=== PATIENT | female | born 1955 | race Caucasian/White ===

== ENCOUNTER → 2016-08-06 | Outpatient (CLI) | payer BC ==
[~2016-08-06] MED LIST: CALCTAB7 PO; CHOL100027 PO; CLINDAMYCIN PHOS 1%; CMD10 PO; CYCLOSPORINE 0.05%; FEXO1TAB46 PO; FLNIN NAE; METRONIDAZOLE 1%; MULTTAB58 PO; OMEG10007 PO; TEMA15CA4 PO; TUSSIGON PO; WARF5TAB90 PO
== END | disposition home or self-care (01) ==
LOC: C.LABSPEC 14:02
PROVIDERS: ATTEND Physician Assistant
DX: N76.2 Acute vulvitis (principal)

== ENCOUNTER → 2016-08-12 | Outpatient (CLI) | payer BC ==
--- NOTE | 2016-08-12 16:30 | MAMMOGRAPHY REPORT ---
UNILATERAL LEFT DIGITAL DIAGNOSTIC MAMMOGRAM TOMOSYNTHESIS WITH CAD AND TARGETED LEFT ULTRASOUND: CLINICAL HISTORY: 60-year-old woman presents with a new palpable "lump/thickening" in the upper oute r posterior left breast. TECHNIQUE: Left breast tomosynthesis in addition to standard 2D mammography was performed. Current s anel was also evaluated with a Computer Aided Detection (CAD) system. COMPARISON: Comparison is made to exams dated: 01/18/2016 mammogram, 01/12/2015 mammogram, 01/11/2014 mammogram, 01/07/2013 mammogram, 01/02/2012 mammogram, and 12/26/2010 mammogram - [facility] enter. BREAST COMPOSITION: There are scattered areas of fibroglandular density in the left breast. FINDINGS: A triangle palpable marker was placed on the skin of the upper outer posterior left breast , in the area of palpable concern pointed out by the patient. There have been involutional changes comparing to more remote prior available mammograms. No new suspicious mass, architectural distorti on or cluster of microcalcifications is seen in the left breast, with particular attention to the ne w palpable area. Targeted ultrasound was performed in the area of concern pointed out by the patient. On palpation, there is a soft mobile grape sized ovoid mass approximately 1 x 2 cm. On ultrasound, there is cristofer l fatty echotexture tissue in the 1:00 left breast, 9 cm from the nipple. No suspicious solid or cy stic mass is seen. IMPRESSION: ACR BI-RADS CATEGORY 2: BENIGN, TARGETED ULTRASOUND ACR BI-RADS CATEGORY 2: BENIGN 1. There is no suspicious mammographic or sonographic abnormality correlating with the new palpable thickening/lump in the 1:00 left breast, pointed out by the patient. This could represent a promine nt fat lobule or possibly a lipoma. Nevertheless, clinical follow-up is recommended, as biopsy of a clinically suspicious mass should not be precluded by negative imaging. 2. Aside from involutional changes of the left breast, there is no significant interval mammographi c change and no mammographic evidence of malignancy. Would recommend continuation of routine screen ing mammography schedule. These results and recommendations were discussed with the patient at the time of the exam. Approximately 10% of breast cancers are not detected with mammography. A negative mammographic repor t should not delay biopsy if a clinically suggestive mass is present. Macy Huston M.D. ay/:08/12/2016 14:56:25 [employer]: Berkley Patten, [facility] letter sent: Normal 1/2 BI-RADS Code: ACR BI-RADS Category 2: Benign Ultrasound BI-RADS: ACR BI-RADS Category 2: Benign
== END | disposition home or self-care (01) ==
LOC: C.MAMM 13:12
PROVIDERS: ATTEND Physician Assistant
DX: N64.59 Other signs and symptoms in breast (principal)

== ENCOUNTER → 2017-01-20 | Outpatient (CLI) | payer BC ==
--- NOTE | 2017-01-21 07:56 | MAMMOGRAPHY REPORT ---
BILATERAL DIGITAL SCREENING MAMMOGRAM TOMOSYNTHESIS WITH CAD: 01/20/2017 CLINICAL HISTORY: Routine screening. Patient has no complaints. TECHNIQUE: Breast tomosynthesis in addition to standard 2D mammography was performed. Current study was also evaluated with a Computer Aided Detection (CAD) system. COMPARISON: Comparison is made to exams dated: 01/18/2016 mammogram, 01/12/2015 mammogram, 01/11/2014 m ammogram, 01/07/2013 mammogram, and 01/02/2012 mammogram - [facility] [address] BREAST COMPOSITION: There are scattered areas of fibroglandular density in both breasts. FINDINGS: There is a possible area of architectural distortion in the 12:00 posterior right breast, for which additional spot compression tomosynthesis views and possible ultrasound are recommended. No other suspicious mass, architectural distortion or cluster of microcalcifications is seen bilatera lly. IMPRESSION: ACR BI-RADS CATEGORY 0: INCOMPLETE EVALUATION: NEED ADDITIONAL IMAGING EVALUATION The possible architectural distortion in the 12:00 posterior right breast needs additional evaluation . The patient will be called to schedule an appointment. Approximately 10% of breast cancers are not detected with mammography. A negative mammographic report should not delay biopsy if a clinically suggestive mass is present. Macy Huston M.D. ay/:01/20/2017 22:56:05 Grease Refiner Operator: Darleen MAGANA(Rylan)(M), [facility] [address] letter sent: Addl Imaging 0 BI-RADS Code: ACR BI-RADS Category 0: Incomplete Evaluation: Need Additional Imaging Evaluation
== END | disposition home or self-care (01) ==
LOC: C.MAMM 09:03
PROVIDERS: ATTEND Physician Assistant
DX: Z12.31 Encounter for screening mammogram for malignant neoplasm of breast (principal); R92.2 Inconclusive mammogram

== ENCOUNTER → 2017-01-27 | Outpatient (CLI) | payer BC ==
--- NOTE | 2017-01-27 15:30 | MAMMOGRAPHY REPORT ---
UNILATERAL RIGHT DIGITAL DIAGNOSTIC MAMMOGRAM TOMOSYNTHESIS AND TARGETED RIGHT ULTRASOUND: 01/27/2017 CLINICAL HISTORY: 61-year-old woman called back from screening mammography for a questionable area of architectural distortion in the superior posterior right breast, only seen on the MLO view. TECHNIQUE: Spot compression right CC and MLO tomosynthesis images were obtained. COMPARISON: Comparison is made to exams dated: 01/20/2017 mammogram, 01/18/2016 mammogram, 01/12/2015 m ammogram, 01/11/2014 mammogram, 01/07/2013 mammogram, and 01/02/2012 mammogram - [facility] nter. BREAST COMPOSITION: There are scattered areas of fibroglandular density in the right breast. FINDINGS: The supplemental spot compression tomosynthesis views of the right breast, with particular attention superiorly, failed to demonstrate persistent architectural distortion on either of the view s. Given the conspicuous nature on the right MLO view, further evaluation with ultrasound was perfor med. Targeted ultrasound was performed in the superior right breast. Sonographically normal tissue is see n without a discrete solid or cystic mass. IMPRESSION: ACR BI-RADS CATEGORY 0: INCOMPLETE EVALUATION: NEED ADDITIONAL IMAGING EVALUATION, TARG ETED ULTRASOUND ACR BI-RADS CATEGORY 0: INCOMPLETE EVALUATION: NEED ADDITIONAL IMAGING EVALUATION There is no definite persisted architectural distortion on the spot compression tomosynthesis views, and no definite area of architectural distortion was identified in the superior right breast on real- time sonographic scanning. However, given the family history of breast cancer and the subtle nature of the initial right MLO finding, definitive characterization with a breast MRI is recommended to exc lude the possibility of a subtle enhancing mass or infiltrative process. These results and recommendations were discussed with the patient at the time of the exam. Approximately 10% of breast cancers are not detected with mammography. A negative mammographic report should not delay biopsy if a clinically suggestive mass is present. Macy Huston M.D. ay/:01/27/2017 14:54:49 Lease Operator: Ivanna MAGANA(Rylan)(Vanessa), [facility] letter sent: Addl Imaging 0 BI-RADS Code: ACR BI-RADS Category 0: Incomplete Evaluation: Need Additional Imaging Evaluation Ult rasound BI-RADS: ACR BI-RADS Category 0: Incomplete Evaluation: Need Additional Imaging Evaluation
== END | disposition home or self-care (01) ==
LOC: C.MAMM 08:59
PROVIDERS: ATTEND Physician Assistant
DX: Z12.31 Encounter for screening mammogram for malignant neoplasm of breast (principal)

== ENCOUNTER → 2017-02-10 | Outpatient (CLI) | payer BC ==
[~2017-02-10] MED LIST changes: +GADAVIST IV PRN
--- NOTE | 2017-02-12 07:47 | MAMMOGRAPHY REPORT ---
BREAST MRI OF BOTH BREASTS : 02/10/2017 CLINICAL HISTORY: 61-year-old woman with a family history of breast cancer presents for evaluation of a possible area of architectural distortion in the superior posterior right breast, only seen on the MLO view. No sonographic correlate identified. COMPARISON: Comparison is made to exams dated: 01/27/2017 ultrasound, 01/27/2017 mammogram, 01/20/2017 mammogram, 08/12/2016 mammogram, 08/12/2016 ultrasound, and 01/18/2016 mammogram - [facility]. TECHNIQUE: Using a 1.5 Hilary magnet and dedicated breast coil, multisequence axial images were obtain ed through the breasts. After uneventful IV administration of 8 mL of Gadavist, dynamic multiphase c ontrast-enhanced axial images, and sagittal postcontrast were obtained. Temporal subtraction axial i mages and 3-D MIP images are provided. Everything was then reviewed on a 3-D workstation, [employer]. FINDINGS: There is no significant background parenchymal enhancement. There is no evidence of persis tent architectural distortion, a suspicious enhancing mass or non-mass enhancement in the superior po sterior right breast to correspond with the possible tomosynthesis finding. Overall, no suspicious e nhancing mass, non-mass enhancement or suspicious kinetics are seen throughout either breast. No foc al skin thickening or nipple retraction. The retromammary fat is intact. No suspicious axillary cierra nopathy. Incidental note is made of mild platelike atelectasis in the visualized dependent right lung. IMPRESSION: ACR BI-RADS CATEGORY 2: BENIGN There is no persistent architectural distortion, a suspicious enhancing mass or non-mass enhancement in the superior posterior right breast or elsewhere throughout both breasts to suggest MRI evidence o f malignancy. The questionable area of distortion is therefore considered benign and would recommend routine screening mammography at time of next annual exam. The patient will receive written notification of the results. Macy Huston M.D. ay/:02/11/2017 07:32:28 Technical Illustrations Map Inker: safety tech, [facility] letter sent: Normal 1/2 BI-RADS Code: ACR BI-RADS Category 2: Benign
== END | disposition home or self-care (01) ==
LOC: C.MRI 12:07
PROVIDERS: ATTEND Physician Assistant
DX: R92.8 Other abnormal and inconclusive findings on diagnostic imaging of breast (principal)

== ENCOUNTER → 2017-03-11 | Outpatient (CLI) | payer BC ==
[~2017-03-11] MED LIST changes: -GADAVIST IV PRN
== END | disposition home or self-care (01) ==
LOC: C.PAPS 10:23
PROVIDERS: ATTEND Obstetrics & Gynecology
DX: Z01.419 Encounter for gynecological examination (general) (routine) without abnormal findings (principal); R87.610 Atypical squamous cells of undetermined significance on cytologic smear of cervix (ASC-US)